=== PATIENT | female | born 1990 | race Caucasian/White ===

== ENCOUNTER 2016-12-05 18:25 | Emergency (ER) | payer OTHER ==
[~2016-12-05 18:25] MED LIST: ACETAMINOPHEN500 M1 PO; ADVIL200 MG; ALPRAZOLAM0.5 M3 PO; AMOXICILLIN500 M; ANTIVERT25 MG PO; BENTYL10 MG PO; BENZONATATE200 M1 PO; BIOTIN5 M3 PO; CEPACOL SORE T1 EAC2 MM; COMPAZINE10 M PO; CYCLOBENZAPRINE10 M1 PO; DICYCLOMINE HCL20 M1 PO; DIFLUCAN100 MG PO; DOLACET 5/500 C1 CAP; DORYX100 MG PO; DOXY-LEMMON100 M PO; EFFEXOR XR150 M1 PO; FIORICET1 TA1 PO; MOTRIN800 MG PO; MUCINEX1200 MG PO; NORCO 5/325 TAB1 TAB PO; NORCO 7.5/3251 TAB PO; OMEPRAZOLE; OMNICEF300 MG PO; ONDANSETRON ODT4 MG PO; ONDANSETRON ODT8 M1 PO; OXYCODONE-ACET1 EAC3 PO; OXYCODONE/APAP PO; PLAN B ONE-STE1.5 MG PO; PRILOSEC40 MG PO; PROAIR HFA8.5 GM IH; ROXICODONE5 M2 PO; VISTARIL25 MG PO; VISTARIL50 MG PO; VITAMIN C500 M4 PO; ZANTAC150 MG PO; ZITHROMAX250 M1 PO; ZITHROMAX250MG Z-PAK PO; ZOFRAN ODT4 MG PO; ZOFRAN4 M2 PO; ZOFRAN4 MG
[2016-12-05 19:33] LABS: URINE APPEARANCE HAZY; URINE BILIRUBIN NEGATIVE (NEG); URINE BLOOD LARGE (NEG); URINE COLOR YELLOW; URINE GLUCOSE (UA) NEGATIVE (NEG); URINE KETONE NEGATIVE (NEG); URINE LEUKOCYTE ESTERASE POSITIVE (NEG); URINE NITRITE NEGATIVE (NEG); URINE PROTEIN SMALL (NEG)
[2016-12-05 19:41] LABS: URINE RBC 100-130 /[HPF] (0-5)
[2016-12-05 19:42] LABS: URINE BACTERIA 1+
[2016-12-05] MEDS ORDERED: PERCOCET 5-3251 EACH (21:02)
[2016-12-05] MEDS ORDERED: PERCOCET 5-3251 EACH PO (21:04)
[2016-12-05] MEDS ORDERED: ZOFRAN4 M2 PO ×2 (21:05→23:29)
[2016-12-05 21:53] LABS: BASO % 0.4 % (0-2); EOS % 1.7 % (0-7); EOSINOPHIL ABSOLUTE COUNT 0.1 tho/cmm (0.0-0.7); HCT-HEMATOCRIT 40.5 % (34.0-49.0); HGB-HEMOGLOBIN 13.7 gm/dl (12.0-15.5); LYMPH % 53.8 % (20-45); LYMPH ABSOLUTE COUNT 2.5 tho/cmm (0.8-4.5); MCH (MEAN CORPUSCULAR HGB) 30.6 pg (28.0-32.0); MCHC MEAN CORPUSCULAR HGB CONC 33.8 % (32.0-36.0); MCV (MEAN CELL VOLUME) 90.6 fl (82.0-96.0); MEAN PLATELET VOLUME 10.3 cmc (9.4-12.4); MONO % 7.3 % (0-12); MONOCYTE ABSOLUTE COUNT 0.3 tho/cmm (0.0-1.2); NEUTROPHIL ABSOLUTE COUNT 1.7 tho/cmm (1.6-8.0); NEUTROPHIL-AUTOMATED 1.7 tho/cmm (1.6-8.0); NEUTROPHILS % 36.8 % (40-80); PLATELET COUNT 199 tho/cmm (150-450); RED BLOOD COUNT 4.47 mil/cmm (4.00-5.20); RED CELL DISTRIBUTION WIDTH 11.9 % (12.4-16.4); WHITE BLOOD COUNT 4.6 tho/cmm (4.0-10.0)
[2016-12-05 22:06] LABS: ANION GAP 12 mmol/L (0-20); BLOOD UREA NITROGEN 8 mg/dl (6-24); CALCIUM 8.6 mg/dl (8.5-10.5); CARBON DIOXIDE-VENOUS 23 mmol/L (22-32); CHLORIDE 108 mmol/l (96-110); CREATININE 0.66 mg/dl (0.50-1.10); GLUCOSE 81 mg/dL (70-110); POTASSIUM 3.8 mmol/L (3.7-5.1); SODIUM 139 mmol/L (135-145); eGFR VALUE FOR BLACK >90 mL/Min
[2016-12-05] MEDS ORDERED: FLOMAX0.4 M1 PO (23:02)
[2016-12-05] MEDS ORDERED: OXYCODONE-ACET1 EAC3 PO (23:29)
== END 2016-12-05 23:55 ==
LOC: EDMED 18:25
PROVIDERS: Emergency Medicine
DX: N20.0 Calculus of kidney (principal); K59.00 Constipation, unspecified; E21.3 Hyperparathyroidism, unspecified; Z90.49 Acquired absence of other specified parts of digestive tract; Z87.442 Personal history of urinary calculi; Z90.89 Acquired absence of other organs; Z98.890 Other specified postprocedural states; Z87.891 Personal history of nicotine dependence; Z79.890 Hormone replacement therapy; Z79.899 Other long term (current) drug therapy
CPT/HCPCS: J1170; J1885; J2405; J7030